=== PATIENT | female | born 1935 | race Caucasian/White ===

== ENCOUNTER 2017-06-05 14:17 | Emergency (ER) | payer MEDICARE ==
--- NOTE | 2017-06-05 15:30 | ER Document Report ---
ED General - General Mode of Arrival: Wheelchair Information source: Patient, Relative <DWAINE RUBIO - Last Filed: 06/05/17 15:37> - General TRAVEL OUTSIDE OF THE [place] IN LAST 30 DAYS: No <MASON MATSON - Last Filed: 06/06/17 23:02> - General Chief Complaint: Urinary Problem Stated Complaint: BLOOD IN URINE Time Seen by Provider: 06/05/17 15:18 Notes: 82 y.o female with a PMHx of L-spine and breast mass presents to the ED after being sent over by the Urgent care for hematuria. Pt states that her urine has been a little pink for the past couple days but today was bright red. She denies any abdominal pain, CP or SOB. She denies any other urinary symptoms. Pt has been taking Xarelto BID for the past 10 days as prescribed by her oncologist. She plans to see her oncologist tomorrow to receive previous test results. (DWAINE RUBIO) - Related Data Allergies/Adverse Reactions: No Known Allergies Allergy (Verified 06/05/17 14:20) Past Medical History - General Information source: Patient - Social History Smoking Status: Never Smoker Chew tobacco use (# tins/day): No Frequency of alcohol use: None Drug Abuse: None Family History: Reviewed & Not Pertinent Patient has suicidal ideation: No Patient has homicidal ideation: No <DWAINE RUBIO - Last Filed: 06/05/17 15:37> - Social History Smoking Status: Never Smoker Chew tobacco use (# tins/day): No Frequency of alcohol use: None Drug Abuse: None Family History: Reviewed & Not Pertinent Patient has suicidal ideation: No Patient has homicidal ideation: No - Past Medical History Cardiac Medical History: Reports: Hx Atrial Fibrillation, Hx Hypercholesterolemia, Hx Hypertension Renal/ Medical History: Denies: Hx Peritoneal Dialysis - Immunizations Hx Diphtheria, Pertussis, Tetanus Vaccination: No <MASON MATSON - Last Filed: 06/06/17 23:02> Review of Systems - Review of Systems Constitutional: No symptoms reported EENT: No symptoms reported Cardiovascular: denies: Chest pain Respiratory: denies: Short of breath Gastrointestinal: See HPI. denies: Abdominal pain Genitourinary: See HPI, Hematuria Female Genitourinary: No symptoms reported Musculoskeletal: No symptoms reported Skin: No symptoms reported Hematologic/Lymphatic: No symptoms reported Neurological/Psychological: No symptoms reported -: Yes All other systems reviewed and negative <DWAINE RUBIO - Last Filed: 06/05/17 15:37> Physical Exam - General General appearance: Appears well, Alert In distress: None - Respiratory Respiratory status: No respiratory distress Chest status: Nontender Breath sounds: Normal Chest palpation: Normal - Cardiovascular Rhythm: Irregularly irregular Heart sounds: Normal auscultation Murmur: No - Abdominal Distension: No distension - Extremities General upper extremity: Normal inspection, Normal ROM General lower extremity: Normal inspection, Normal ROM - Neurological Neuro grossly intact: Yes Cognition: Normal Orientation: AAOx4 - Psychological Associated symptoms: Normal affect, Normal mood - Skin Skin Temperature: Warm Skin Moisture: Dry Skin Color: Normal <DWAINE RUBIO - Last Filed: 06/05/17 15:37> - Vital signs Vitals: Temp Pulse Resp BP Pulse Ox 98.4 F 93 18 109/74 96 06/05/17 14:23 06/05/17 14:23 06/05/17 14:23 06/05/17 14:23 06/05/17 14:23 Course <DWAINE RUBIO - Last Filed: 06/05/17 15:37> <MASON MATSON - Last Filed: 06/06/17 23:02> - Re-evaluation Re-evalutation: 06/05/17 15:27 Patient well-appearing in no acute distress. No recent cough congestion fevers or illnesses. Patient is able to urinate but has been having pink to red colored urine since this morning. Patient is on Xarelto for blood clots in her legs. I discussed with patient and [id number] need for reevaluation in the next day or 2 if symptoms are continuing. She is instructed to come immediately to the emergency department if symptoms are worsening or inability to void. Patient [id number] agrees with plan. She has appointment with her oncology doctor who is following her for her masses in her spine and breast tomorrow. She is instructed to let them know about her painless hematuria. ( MASON MATSON) - Vital Signs Vital signs: Temp Pulse Resp BP Pulse Ox 98.3 F 90 20 106/63 99 06/05/17 15:51 06/05/17 15:51 06/05/17 15:51 06/05/17 15:51 06/05/17 15:51 Discharge <DWAINE RUBIO - Last Filed: 06/05/17 15:37> <MASON MATSON - Last Filed: 06/06/17 23:02> - Discharge Clinical Impression: Hematuria Qualifiers: Hematuria type: unspecified type Qualified Code(s): R31.9 - Hematuria, unspecified Disposition: HOME, SELF-CARE Instructions: Hematuria ([facility]) Additional Instructions: Please seek medical care if your symptoms continue over the next day or 2. Per discussion, if you have inability to urinate you need to seek medical advice. Please let your doctor know about the pain was hematuria you have been experiencing since today. Referrals: JACOB RINALDI PA-C [Primary Care Provider] - Follow up as needed Scribe Attestation: 06/06/17 23:01 I personally performed the services described documentation, reviewed and edited the documentation which was dictated to describe my presence, and it accurately records my words and actions. (MASON MATSON) Scribe Documentation - Scribe Written by Scribe:: Brooklyn Carranza 06/05/17 1537 acting as scribe for :: Олег <DWAINE RUBIO - Last Filed: 06/05/17 15:37>
[2017-06-05 16:20] VITALS: BP 106/63
== END 2017-06-05 15:51 | disposition home or self-care (01) ==
LOC: ER 14:17
DX: R31.9 Hematuria, unspecified (principal); R39.198 Other difficulties with micturition; Z79.01 Long term (current) use of anticoagulants
CPT/HCPCS: 99283